=== PATIENT | female | born 1990 | race Two or more races ===

== ENCOUNTER 2025-02-24 16:13 | Emergency (ER) | payer OTHER ==
[~2025-02-24] VITALS: Ht 165.1 cm; Wt 65.9 kg
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
[2025-02-24] MEDS ORDERED: IBUP-1455 PO (17:40)
[2025-02-24] MEDS ORDERED: ACET500T58 PO (17:40)
[2025-02-24 19:10] VITALS: BP 118/78; PULSE 76; RESP 17; TEMP 98.1
[2025-02-24 19:13] VITALS: O2SAT 97
== END 2025-02-24 19:07 | disposition home or self-care (01) ==
LOC: ER 16:13 → EDBD 16:13 → ER 19:07
DX: S16.1XXA Strain of muscle, fascia and tendon at neck level, initial encounter (principal); V43.52XA Car driver injured in collision with other type car in traffic accident, initial encounter; Y93.89 Activity, other specified; Y92.488 Other paved roadways as the place of occurrence of the external cause; Y99.8 Other external cause status
CPT/HCPCS: 72040